=== PATIENT | male | born 1980 | race Caucasian/White ===

== ENCOUNTER 2023-07-19 09:53 | Emergency (ER) | payer MEDICAID ==
[~2023-07-19] VITALS: Ht 175.3 cm; Wt 62.0 kg
[2023-07-19 10:00] VITALS: BP 117/64; PULSE 88; RESP 18; TEMP 98.7; O2SAT 100
[2023-07-19] MEDS ORDERED: ONDANSETRON HCL 4MG TABLET PO ONE (10:15)
== END 2023-07-19 11:13 | disposition home or self-care (01) ==
LOC: ER 09:53
DX: Z00.00 Encounter for general adult medical examination without abnormal findings (principal); R11.2 Nausea with vomiting, unspecified; Z88.0 Allergy status to penicillin
CPT/HCPCS: 99283; Q0162